=== PATIENT | male | born 1980 | race African-American/Black ===

== ENCOUNTER 2017-04-19 12:51 | Emergency (ER) | payer OTHER ==
[~2017-04-19] VITALS: Ht 170.1 cm; Wt 60.8 kg
[~2017-04-19 12:51] MED LIST: ANAPROX DS550 MG PO; ANTIBIOTIC O500 U/GM TP; BACITRACIN 500U30 GM T; BACTRIM DS 8001 TA1 PO; CEPHALEXIN500 M1 PO; CIPRO500 MG PO; CLEOCIN150 MG PO; CLINDAMYCIN HC300 MG PO; COGENTIN1 MG PO; CYCLOBENZAPRINE10 MG PO; FLAGYL500 MG PO; GABAPENTIN800 MG PO; HYDROCODONE BIT1 T11 PO; IBU800 M1 PO; IBU800 MG PO; KEFLEX 500 MG E2 CAP PO; KEFLEX500 M1 PO; KEFLEX500 MG PO; LITHIUM CARBON300 MG PO; MOTRIN800 MG PO; Motrin,Rufen800 MG PO; NAPROSYN500 MG PO; NEURONTIN800 MG PO; NORCO 325 MG-51 TAB PO; OCUFLOX 10 ML10 ML OP; Orphenadrine C100 MG PO; PROZAC20 MG PO; RISPERDAL4 MG PO; SEPTRA DS 800 M1 TAB PO; VICODIN 5/500 505 MG PO; VISTARIL25 MG PO; VISTARIL50 MG PO; VOLTAREN50 MG PO; ZOFRAN4 MG PO
[2017-04-19 12:56] VITALS: BP 130/80
== END 2017-04-19 13:54 | disposition home or self-care (01) ==
LOC: ED 12:51
DX: M25.562 Pain in left knee (principal); G89.29 Other chronic pain; F17.200 Nicotine dependence, unspecified, uncomplicated

== ENCOUNTER 2017-06-11 13:57 | Emergency (ER) | payer OTHER ==
[~2017-06-11] VITALS: Ht 170.1 cm; Wt 65.8 kg
[2017-06-11 14:06] VITALS: BP 129/73
[2017-06-11 14:34] LABS: BASO # 0.1 10*3/uL (0.0-0.1); BASO % 0.5 % (0.0-1.0); EOS # 0.1 10*3/uL (0.0-0.4); EOS % 1.1 % (1.0-4.0); HEMOGLOBIN 14.4 g/dl (14.0-18.0); LYMPH # 1.9 10*3/uL (1.3-4.4); LYMPH % 19.9 % (27.0-41.0); MEAN CELL VOLUME 89.2 fl (80.0-94.0); MEAN CORPUSCULAR HGB 29.9 pg (27.0-31.0); MEAN CORPUSCULAR HGB CONC 33.5 g/dl (33.0-37.0); MEAN PLATELET VOLUME 11.2 fl (9.6-12.3); MONO # 0.8 10*3/uL (0.1-1.0); MONO % 8.8 % (3.0-9.0); NEUT # 6.6 10*3/uL (2.3-7.9); NEUT % 69.1 % (47.0-73.0); PLATELET COUNT AUTOMATED 233 10*3/uL (130-400); RED BLOOD COUNT 4.82 10*6/uL (4.50-5.90); RED CELL DISTRI WIDTH 14.3 % (0-14.5); WHITE BLOOD COUNT 9.5 10*3/uL (4.8-10.8)
[2017-06-11 14:51] LABS: ALBUMIN 3.8 gm/dl (3.1-4.5); ALKALINE PHOSPHATASE 64 U/L (45-117); BUN 10 mg/dl (7-24); CHLORIDE 101 mmol/L (98-107); CREATININE 0.95 mg/dL (0.70-1.30); POTASSIUM 3.9 mmol/L (3.5-5.1); SGOT/AST 16 IU/L (3-35); SGPT/ALT 24 U/L (12-78); SODIUM 136 mmol/L (136-145); TOTAL PROTEIN 7.2 gm/dL (6.4-8.2)
[2017-06-11] MEDS ORDERED: SEPTDS PO (15:19)
[2017-06-11] MEDS ORDERED: CEPHALEXIN500 M1 PO (15:19)
[2017-06-11] MEDS ORDERED: NORCO 5-325 TA1 EACH PO (15:19)
== END 2017-06-11 15:35 | disposition home or self-care (01) ==
LOC: ED 13:57
PROVIDERS: Physician Assistant
DX: L02.416 Cutaneous abscess of left lower limb (principal); F17.200 Nicotine dependence, unspecified, uncomplicated

== ENCOUNTER 2017-10-08 18:58 | Emergency (ER) | payer OTHER ==
[~2017-10-08] VITALS: Ht 170.1 cm; Wt 63.5 kg
[~2017-10-08 18:58] MED LIST changes: +NORCO 5-325 TA1 EACH PO; +SEPTDS PO
[2017-10-08 19:12] VITALS: BP 130/68
[2017-10-08] MEDS ORDERED: SEPTDS PO (19:38)
[2017-10-08] MEDS ORDERED: CEPHALEXIN500 M1 PO (19:38)
[2017-10-08] MEDS ORDERED: NAPROSYN500 MG PO (19:38)
== END 2017-10-08 19:43 | disposition home or self-care (01) ==
LOC: ED 18:58
DX: L02.416 Cutaneous abscess of left lower limb (principal); F17.200 Nicotine dependence, unspecified, uncomplicated

== ENCOUNTER 2017-10-20 18:16 | Emergency (ER) | payer OTHER ==
[~2017-10-20] VITALS: Wt 63.5 kg
[2017-10-20 18:23] VITALS: BP 126/78
[2017-10-20] MEDS ORDERED: PENICILLIN VK500 MG PO (18:27)
[2017-10-20] MEDS ORDERED: Peridex 473 ML473 ML PO (18:27)
[2017-10-20] MEDS ORDERED: NAPROSYN500 MG PO (18:27)
== END 2017-10-20 18:36 | disposition home or self-care (01) ==
LOC: ED 18:16
DX: K08.89 Other specified disorders of teeth and supporting structures (principal); R03.0 Elevated blood-pressure reading, without diagnosis of hypertension; F17.200 Nicotine dependence, unspecified, uncomplicated; G89.29 Other chronic pain; Z79.899 Other long term (current) drug therapy

== ENCOUNTER 2017-10-22 12:01 | Emergency (ER) | payer OTHER ==
[~2017-10-22] VITALS: Ht 172.7 cm; Wt 63.5 kg
[~2017-10-22 12:01] MED LIST changes: +PENICILLIN VK500 MG PO; +Peridex 473 ML473 ML PO
[2017-10-22 12:06] VITALS: BP 123/92
[2017-10-22] MEDS ORDERED: CLINDAMYCIN150 MG PO (12:15)
== END 2017-10-22 12:30 | disposition home or self-care (01) ==
LOC: ED 12:01
DX: K02.9 Dental caries, unspecified (principal); E87.6 Hypokalemia; F17.200 Nicotine dependence, unspecified, uncomplicated; F10.10 Alcohol abuse, uncomplicated; Z79.899 Other long term (current) drug therapy

== ENCOUNTER 2017-12-03 18:38 | Emergency (ER) | payer OTHER ==
[~2017-12-03] VITALS: Ht 175.2 cm; Wt 77.1 kg
[~2017-12-03 18:38] MED LIST changes: +CLINDAMYCIN150 MG PO
[2017-12-03 18:43] VITALS: BP 141/84
[2017-12-03 19:07] LABS: BILIRUBIN 1+ (NEGATIVE); BLOOD NEGATIVE (NEGATIVE); CLARITY SL CLOUDY (CLEAR); COLOR YELLOW (YELLOW); GLUCOSE NEGATIVE (NEGATIVE); KETONE TRACE (NEGATIVE); LEUKO ESTERASE NEGATIVE (NEGATIVE); NITRITE NEGATIVE (NEGATIVE); SPECIFIC GRAVITY >= 1.030 (1.005-1.030); UROBILINOGEN 0.2 E.U./dl (0.2-1.0)
[2017-12-03 19:13] LABS: BASO # 0.1 10*3/uL (0.0-0.1); BASO % 0.3 % (0.0-1.0); EOS # 0.1 10*3/uL (0.0-0.4); EOS % 0.7 % (1.0-4.0); HEMATOCRIT 49.4 % (42.0-52.0); HEMOGLOBIN 16.7 g/dl (14.0-18.0); LYMPH # 2.5 10*3/uL (1.3-4.4); LYMPH % 15.7 % (27.0-41.0); MEAN CELL VOLUME 88.4 fl (80.0-94.0); MEAN CORPUSCULAR HGB 29.9 pg (27.0-31.0); MEAN CORPUSCULAR HGB CONC 33.8 g/dl (33.0-37.0); MEAN PLATELET VOLUME 11.2 fl (9.6-12.3); MONO # 1.2 10*3/uL (0.1-1.0); MONO % 7.5 % (3.0-9.0); NEUT # 11.9 10*3/uL (2.3-7.9); NEUT % 75.5 % (47.0-73.0); PLATELET COUNT AUTOMATED 297 10*3/uL (130-400); RED BLOOD COUNT 5.59 10*6/uL (4.50-5.90); RED CELL DISTRI WIDTH 13.9 % (0-14.5); WHITE BLOOD COUNT 15.8 10*3/uL (4.8-10.8)
[2017-12-03 19:30] LABS: ALBUMIN 3.9 gm/dl (3.1-4.5); ALKALINE PHOSPHATASE 97 U/L (45-117); BUN 15 mg/dl (7-24); CHLORIDE 102 mmol/L (98-107); CREATININE 1.19 mg/dL (0.70-1.30); POTASSIUM 3.8 mmol/L (3.5-5.1); SGOT/AST 17 IU/L (3-35); SGPT/ALT 22 U/L (12-78); SODIUM 138 mmol/L (136-145); TOTAL PROTEIN 7.8 gm/dL (6.4-8.2)
[2017-12-03 19:31] LABS: BACTERIA 1+; MUCOUS 2+; RBC 0-2 rbc/hpf (0-2)
== END 2017-12-03 20:52 | disposition home or self-care (01) ==
LOC: ED 18:38
PROVIDERS: Nurse Practitioner Family
DX: R30.0 Dysuria (principal); Z11.3 Encounter for screening for infections with a predominantly sexual mode of transmission; Z87.442 Personal history of urinary calculi

== ENCOUNTER 2017-12-17 11:59 | Emergency (ER) | payer OTHER ==
[~2017-12-17] VITALS: Wt 65.8 kg
[2017-12-17 12:02] VITALS: BP 99/63
== END 2017-12-17 12:31 | disposition home or self-care (01) ==
LOC: ED 11:59
DX: T84.013A Broken internal left knee prosthesis, initial encounter (principal); G89.29 Other chronic pain; Y92.9 Unspecified place or not applicable

== ENCOUNTER 2018-03-15 16:06 | Emergency (ER) | payer OTHER ==
[~2018-03-15] VITALS: Wt 63.5 kg
[2018-03-15 16:17] VITALS: BP 110/79
[2018-03-15] MEDS ORDERED: SEPTDS PO (16:39)
== END 2018-03-15 16:44 | disposition home or self-care (01) ==
LOC: ED 16:06
DX: L02.01 Cutaneous abscess of face (principal); F17.200 Nicotine dependence, unspecified, uncomplicated; Z86.14 Personal history of Methicillin resistant Staphylococcus aureus infection

== ENCOUNTER 2022-09-21 18:04 | Emergency (ER) | payer SELFPAY ==
[~2022-09-21] VITALS: Wt 65.8 kg
[2022-09-21 18:39] VITALS: BP 112/81
[2022-09-21 20:22] LABS: BASO % 0.5 % (0.0-1.0); EOS # 0.3 10*3/uL (0.0-0.4); EOS % 3.1 % (1.0-4.0); HEMATOCRIT 44.6 % (42.0-52.0); LYMPH # 2.5 10*3/uL (1.3-4.4); LYMPH % 28.7 % (27.0-41.0); MEAN CELL VOLUME 89.6 fl (80.0-94.0); MEAN CORPUSCULAR HGB 29.3 pg (27.0-31.0); MEAN CORPUSCULAR HGB CONC 32.7 g/dl (33.0-37.0); MEAN PLATELET VOLUME 10.6 fl (9.6-12.3); MONO # 0.7 10*3/uL (0.1-1.0); MONO % 8.6 % (3.0-9.0); NEUT # 5.1 10*3/uL (2.3-7.9); NEUT % 58.9 % (47.0-73.0); PLATELET COUNT AUTOMATED 350 10*3/uL (130-400); RED BLOOD COUNT 4.98 10*6/uL (4.50-5.90); RED CELL DISTRI WIDTH 13.6 % (0-14.5); WHITE BLOOD COUNT 8.6 10*3/uL (4.8-10.8)
[2022-09-21 20:37] LABS: ALKALINE PHOSPHATASE 77 U/L (46-116); BUN 11 mg/dl (9-23); CHLORIDE 104 mmol/L (98-107); POTASSIUM 3.6 mmol/L (3.4-5.1); SGPT/ALT 31 U/L (10-49); TOTAL PROTEIN 6.8 gm/dL (6.0-8.0)
[2022-09-21] MEDS ORDERED: SEPTDS PO (21:11)
[2022-09-21] MEDS ORDERED: CEPHALEXIN500 M1 PO (21:11)
== END 2022-09-21 21:46 | disposition home or self-care (01) ==
LOC: ED 18:04
PROVIDERS: Physician Assistant
DX: L03.116 Cellulitis of left lower limb (principal)

== ENCOUNTER 2022-10-07 10:44 | Emergency (ER) | payer SELFPAY ==
[~2022-10-07] VITALS: Ht 172.7 cm; Wt 65.8 kg
[2022-10-07 11:27] VITALS: BP 117/79
[2022-10-07 12:05] LABS: BASO # 0.1 10*3/uL (0.0-0.1); BASO % 0.6 % (0.0-1.0); EOS # 0.2 10*3/uL (0.0-0.4); HEMATOCRIT 43.5 % (42.0-52.0); LYMPH # 2.3 10*3/uL (1.3-4.4); LYMPH % 26.3 % (27.0-41.0); MEAN CELL VOLUME 91.4 fl (80.0-94.0); MEAN CORPUSCULAR HGB 29.4 pg (27.0-31.0); MEAN CORPUSCULAR HGB CONC 32.2 g/dl (33.0-37.0); MEAN PLATELET VOLUME 11.2 fl (9.6-12.3); MONO # 0.7 10*3/uL (0.1-1.0); MONO % 8.4 % (3.0-9.0); NEUT # 5.5 10*3/uL (2.3-7.9); NEUT % 62.6 % (47.0-73.0); PLATELET COUNT AUTOMATED 336 10*3/uL (130-400); RED BLOOD COUNT 4.76 10*6/uL (4.50-5.90); RED CELL DISTRI WIDTH 13.7 % (0-14.5); WHITE BLOOD COUNT 8.9 10*3/uL (4.8-10.8)
[2022-10-07 12:23] LABS: ALKALINE PHOSPHATASE 76 U/L (46-116); BUN 17 mg/dl (9-23); CHLORIDE 105 mmol/L (98-107); SGPT/ALT 20 U/L (10-49); TOTAL PROTEIN 7.5 gm/dL (6.0-8.0)
[2022-10-07] MEDS ORDERED: CEPHALEXIN500 M1 PO (12:25)
== END 2022-10-07 12:54 | disposition home or self-care (01) ==
LOC: ED 10:44
PROVIDERS: Nurse Practitioner Family
DX: T87.44 Infection of amputation stump, left lower extremity (principal); Z89.512 Acquired absence of left leg below knee; Y83.8 Other surgical procedures as the cause of abnormal reaction of the patient, or of later complication, without mention of misadventure at the time of the procedure; Y92.89 Other specified places as the place of occurrence of the external cause

== ENCOUNTER 2022-11-26 05:23 | Emergency (ER) | payer SELFPAY ==
[2022-11-26 05:26] VITALS: BP 123/71
[2022-11-26] MEDS ORDERED: SEPTDS PO (06:06)
[2022-11-26] MEDS ORDERED: CEPHALEXIN500 M1 PO (06:06)
== END 2022-11-26 06:16 | disposition home or self-care (01) ==
LOC: ED 05:23
DX: Z48.01 Encounter for change or removal of surgical wound dressing (principal); Z89.512 Acquired absence of left leg below knee; F10.10 Alcohol abuse, uncomplicated; E87.6 Hypokalemia; Z98.890 Other specified postprocedural states; F31.9 Bipolar disorder, unspecified

== ENCOUNTER 2022-12-15 01:30 | Emergency (ER) | payer SELFPAY ==
[~2022-12-15] VITALS: Ht 170.1 cm; Wt 72.6 kg
[2022-12-15 01:32] VITALS: BP 111/52
[2022-12-15 01:46] LABS: BASO # 0.1 10*3/uL (0.0-0.1); EOS # 0.2 10*3/uL (0.0-0.4); EOS % 2.2 % (1.0-4.0); HEMATOCRIT 42.7 % (42.0-52.0); LYMPH # 1.8 10*3/uL (1.3-4.4); LYMPH % 21.6 % (27.0-41.0); MEAN CELL VOLUME 90.3 fl (80.0-94.0); MEAN CORPUSCULAR HGB 29.2 pg (27.0-31.0); MEAN CORPUSCULAR HGB CONC 32.3 g/dl (33.0-37.0); MEAN PLATELET VOLUME 10.3 fl (9.6-12.3); MONO # 1.1 10*3/uL (0.1-1.0); MONO % 13.4 % (3.0-9.0); NEUT # 5.1 10*3/uL (2.3-7.9); NEUT % 61.6 % (47.0-73.0); PLATELET COUNT AUTOMATED 308 10*3/uL (130-400); RED BLOOD COUNT 4.73 10*6/uL (4.50-5.90); RED CELL DISTRI WIDTH 13.4 % (0-14.5); WHITE BLOOD COUNT 8.2 10*3/uL (4.8-10.8)
== END 2022-12-15 01:53 | disposition home or self-care (01) ==
LOC: ED 01:30
PROVIDERS: Internal Medicine
DX: M79.662 Pain in left lower leg (principal); R23.8 Other skin changes; Z48.00 Encounter for change or removal of nonsurgical wound dressing

== ENCOUNTER 2022-12-31 08:23 | Emergency (ER) | payer SELFPAY ==
[~2022-12-31] VITALS: Ht 172.7 cm; Wt 63.5 kg
[2022-12-31 08:26] VITALS: BP 110/82
[2022-12-31 09:17] LABS: BASO # 0.1 10*3/uL (0.0-0.1); BASO % 0.7 % (0.0-1.0); EOS # 0.1 10*3/uL (0.0-0.4); EOS % 1.2 % (1.0-4.0); HEMATOCRIT 49.2 % (42.0-52.0); LYMPH # 2.2 10*3/uL (1.3-4.4); LYMPH % 26.1 % (27.0-41.0); MEAN CELL VOLUME 89.9 fl (80.0-94.0); MEAN CORPUSCULAR HGB CONC 33.3 g/dl (33.0-37.0); MEAN PLATELET VOLUME 11.2 fl (9.6-12.3); MONO # 0.6 10*3/uL (0.1-1.0); MONO % 7.5 % (3.0-9.0); NEUT # 5.5 10*3/uL (2.3-7.9); NEUT % 64.4 % (47.0-73.0); PLATELET COUNT AUTOMATED 397 10*3/uL (130-400); RED BLOOD COUNT 5.47 10*6/uL (4.50-5.90); RED CELL DISTRI WIDTH 13.2 % (0-14.5); WHITE BLOOD COUNT 8.5 10*3/uL (4.8-10.8)
[2022-12-31 09:35] LABS: ALKALINE PHOSPHATASE 91 U/L (46-116); BUN 12 mg/dl (9-23); CHLORIDE 104 mmol/L (98-107); POTASSIUM 4.3 mmol/L (3.4-5.1); SGPT/ALT 17 U/L (10-49); TOTAL PROTEIN 8.2 gm/dL (6.0-8.0)
[2022-12-31] MEDS ORDERED: CEPHALEXIN500 M1 PO (10:14)
[2022-12-31] MEDS ORDERED: SEPTDS PO (10:14)
== END 2022-12-31 10:30 | disposition home or self-care (01) ==
LOC: ED 08:23
PROVIDERS: Emergency Medicine
DX: L03.116 Cellulitis of left lower limb (principal); F17.200 Nicotine dependence, unspecified, uncomplicated

== ENCOUNTER 2023-01-02 14:05 | Emergency (ER) | payer SELFPAY | END 2023-01-02 14:27 | disposition left against medical advice (07) | LOC: ED 14:05 | DX: Z48.01 Encounter for change or removal of surgical wound dressing (principal); Z53.21 Procedure and treatment not carried out due to patient leaving prior to being seen by health care provider ==

== ENCOUNTER 2023-03-23 12:38 | Emergency (ER) | payer MEDICAID ==
[~2023-03-23] VITALS: Ht 170.1 cm; Wt 67.1 kg
[2023-03-23 12:40] VITALS: BP 114/82
[2023-03-23] MEDS ORDERED: CEPHALEXIN500 M1 PO (12:45)
[2023-03-23] MEDS ORDERED: SEPTDS PO (12:58)
== END 2023-03-23 12:54 ==
LOC: ED 12:38
DX: L03.114 Cellulitis of left upper limb (principal); F31.9 Bipolar disorder, unspecified; Z98.890 Other specified postprocedural states

== ENCOUNTER 2025-02-18 21:04 | Emergency (ER) | payer OTHER ==
[~2025-02-18] VITALS: Wt 67.1 kg
[2025-02-18 21:10] VITALS: BP 112/75
[2025-02-18 22:04] LABS: BASO # 0.1 10*3/uL (0.0-0.1); BASO % 0.5 % (0.0-1.0); EOS # 0.4 10*3/uL (0.0-0.4); EOS % 4.4 % (1.0-4.0); MEAN CELL VOLUME 88.6 fl (80.0-94.0); MEAN CORPUSCULAR HGB 29.0 pg (27.0-31.0); MEAN PLATELET VOLUME 10.2 fl (9.6-12.3); MONO # 0.9 10*3/uL (0.1-1.0); MONO % 9.0 % (3.0-9.0); NEUT # 5.7 10*3/uL (2.3-7.9); NEUT % 58.5 % (47.0-73.0); NUCLEATED RED BLOOD CELL 0.0 % (0.0-0.0); NUCLEATED RED BLOOD CELL 0.0 10*3/uL (0.0-0.0); PLATELET COUNT AUTOMATED 349 10*3/uL (130-400); RED CELL DISTRI WIDTH 13.8 % (0-14.5)
[2025-02-18 22:45] LABS: BUN 10 mg/dl (9-23)
[2025-02-18] MEDS ORDERED: POTASSIUM CHLORIDE 20 MEQ TAB PO ONE (23:00)
== END 2025-02-18 23:09 ==
LOC: ED 21:04
PROVIDERS: Nurse Practitioner Family
DX: E87.6 Hypokalemia (principal); Z89.512 Acquired absence of left leg below knee

== ENCOUNTER 2025-03-07 22:32 | Emergency (ER) | payer OTHER ==
[~2025-03-07] VITALS: Ht 170.1 cm; Wt 60.3 kg
[2025-03-07 22:38] VITALS: BP 123/74
== END 2025-03-08 01:50 | disposition home or self-care (01) ==
LOC: ED 22:32
DX: M79.652 Pain in left thigh (principal); Z98.890 Other specified postprocedural states

== ENCOUNTER 2025-07-30 04:48 | Emergency (ER) | payer OTHER ==
[~2025-07-30] VITALS: Ht 172.7 cm; Wt 68.0 kg
[2025-07-30 04:50] VITALS: BP 115/71
== END 2025-07-30 16:36 | disposition home or self-care (01) ==
LOC: ED 04:48
DX: S80.02XA Contusion of left knee, initial encounter (principal); F31.9 Bipolar disorder, unspecified; W00.0XXA Fall on same level due to ice and snow, initial encounter; Y93.89 Activity, other specified; Y92.89 Other specified places as the place of occurrence of the external cause; Y99.8 Other external cause status